=== PATIENT | female | born 1935 | race Caucasian/White ===

== ENCOUNTER 2021-08-30 10:11 | Outpatient (CLI) | payer MEDICARE, OTHER | END 2021-08-30 10:12 | disposition home or self-care (01) | LOC: PET 10:11 | PROVIDERS: ATTEND Internal Medicine Hematology & Oncology | DX: C43.9 Malignant melanoma of skin, unspecified (principal); K11.8 Other diseases of salivary glands; R22.1 Localized swelling, mass and lump, neck | CPT/HCPCS: 78816; A9552 ==

== ENCOUNTER 2022-01-06 11:00 | Outpatient (CLI) | payer MEDICARE, OTHER | END 2022-01-06 11:01 | LOC: PET 11:00 | PROVIDERS: ATTEND Internal Medicine Hematology & Oncology | DX: C43.39 Malignant melanoma of other parts of face (principal); K11.9 Disease of salivary gland, unspecified | CPT/HCPCS: 78816; A9552 ==

== ENCOUNTER 2022-04-26 11:45 | Outpatient (CLI) | payer MEDICARE, OTHER | END 2022-04-26 11:46 | disposition home or self-care (01) | LOC: PET 11:45 | PROVIDERS: ATTEND Internal Medicine Hematology & Oncology | DX: C43.39 Malignant melanoma of other parts of face (principal); C79.9 Secondary malignant neoplasm of unspecified site; D50.8 Other iron deficiency anemias | CPT/HCPCS: 78816; A9552 ==